=== PATIENT | female | born 1990 | race Caucasian/White ===

== ENCOUNTER 2016-10-16 17:42 | Emergency (ER) | payer OTHER ==
[~2016-10-16] VITALS: Ht 167.6 cm; Wt 79.8 kg
[2016-10-16 17:46] VITALS: BP 132/66
--- NOTE | 2016-10-16 17:56 | ED GENERAL ADULT ---
History of Present Illness General Chief Complaint: Lower Extremity Problems Stated Complaint: FALL, BILATERAL KNEE PAIN Source: patient Exam Limitations: no limitations Vital Signs & Intake/Output Vital Signs & Intake/Output Vital Signs Date Time Temp Pulse Resp B/P B/P Pulse O2 O2 Flow FiO2 Mean Ox Delivery Rate 10/16 1746 98.6 86 18 132/66 98 Room Air Allergies Uncoded Allergies: SEAFOOD (Severe, ANAPHYLAXIS 10/16/16) Triage Note: 26 YO FEMALE TO ER C/O PAIN TO BILATERALL KNEES AND DOWN ENTIRE SPINE. PT STATES SHE FALL LAST WEEK AND AGAIN MONDAY. STATES SHE WASNT WEARING NON-SLIP SHOES AND THATS WHY SHE KEEPS FALLING. [facility] T[facility] Nurses Notes Reviewed? yes : No Patient currently breastfeeds: No HPI: 26-year-old female with a history of opiate abuse (on methadone) presenting with bilateral knee pain and low back pain status post mechanical falls. Reports first mechanical fall was 10 days ago when she slipped on water, landed on tile floor with bilateral knees. Reports second mechanical fall was 4 days ago when she tripped over a pain that was on the floor in the kitchen, fell backwards onto tile floor landing on her buttocks. Denies head injuries or loss of consciousness with either episode. Been using Tylenol and ibuprofen with minimal improvement. Denies numbness or paresthesias. (ANNA MARQUEZ,RAJ) Reconcile Medications Lidocaine (Lidoderm) 5 % ADH..PATCH 1 PAT TOP DAILY PRN knee or back pain may wear up to 12 hours Naproxen (Naprosyn) 500 MG TABLET 1 TAB PO BID PRN knee or back pain (RADHA ZHAO,GAIL Sanders) Past History Travel History Traveled to [place] past 21 day No Medical History Any Pertinent Medical History? 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 No (RAJ CASTILLO PA-C) Review of Systems Review of Systems Constitutional: Reports: no symptoms. Respiratory: Reports: no symptoms. Cardiovascular: Reports: no symptoms. GI: Reports: no symptoms. Musculoskeletal: Reports: back pain, joint pain (knees). Skin: Reports: no symptoms. Neurological/Psychological: Reports: no symptoms. (ANNA MARQUEZ,RAJ) Physical Exam Physical Exam General Appearance: well developed/nourished, no apparent distress, alert, awake , comfortable Head: atraumatic Respiratory: normal breath sounds, lungs clear Cardiovascular: regular rate/rhythm, normal peripheral pulses Back: normal inspection, normal range of motion, no vertebral tenderness, on exam of the back there are no abrasions, ecchymosis, or other signs of physical trauma. There is no midline spinal or paraspinal tenderness to palpation. Unrestricted spinal range of motion. Negative straight leg raise. Able to ambulate unassisted with a steady gait. Extremities: normal inspection, normal range of motion, on exam of bilateral knees there are no abrasions, ecchymosis, or other signs of physical trauma. There is no tenderness to palpation. unrestricted range of motion with both flexion and extension. Normal sensation. Motor strength 5 out of 5. Distal pulses palpable. Neurologic/Psych: awake, alert, oriented x 3, normal mood/affect Skin: intact, normal color, warm/dry Core Measures ACS in differential dx? No CVA/TIA Diagnosis: No Severe Sepsis Present: No Septic Shock Present: No (RAJ CASTILLO PA-C) Progress Differential Diagnoses I considered the following diagnoses in my evaluation of the patient: [Knee contusion versus fracture versus ligament sprain versus dislocation. Low back contusion versus vertebral fracture versus sacral fracture.] Plan of Care: Current Medications Sig/Milagros Start time Last Medication Dose Stop Time Status Admin Ketorolac 60 MG ONCE ONE 10/16 1829 AC Tromethamine 10/16 1830 (Toradol) Lidocaine 1 PAT ONCE ONE 10/16 1829 AC (Lidoderm) 10/16 1830 No indication for imaging at this time as patient has an unremarkable physical exam that is not concerning for any fractures. Given Rx for Lidoderm patches and naproxen. Will follow-up with her primary care provider. (RAJ CASTILLO PA-C) Initial ED EKG: none (RAJ CASTILLO PA-C) Departure Departure Disposition: HOME OR SELF CARE Condition: Stable Clinical Impression Primary Impression: Contusion of lower back Secondary Impressions: Contusion of knee, left, Contusion of right knee Additional Instructions: Use 500 mg of naproxen twice daily as needed for pain. Take this medication with a meal. Apply 1 Lidoderm patch to most painful area once daily. Follow up with her primary care provider for reevaluation. Return to the ED for any new or worsening symptoms. Departure Forms: Customer Survey General Discharge Information (ANNA MARQUEZ,RAJ) Departure Prescriptions: Current Visit Scripts Naproxen (Naprosyn) 1 TAB PO BID PRN knee or back pain #60 TAB Lidocaine (Lidoderm) 1 PAT TOP DAILY PRN knee or back pain #30 PAT may wear up to 12 hours PA/TOMATO PASTE MAKER Co-Sign Statement Statement: ED Attending supervision documentation- [] I saw and evaluated the patient. I have also reviewed all the pertinent lab results and diagnostic results. I agree with the findings and the plan of care as documented in the PA's/TOMATO PASTE MAKER's documentation. [X] I have reviewed the ED Record and agree with the PA's/TOMATO PASTE MAKER's documentation. [] Additions or exceptions (if any) to the PAs/TOMATO PASTE MAKER's note and plan are summarized below: [] (RADHA ZHAO,GAIL Sanders) Critical Care Note Critical Care Note Critical Care Time: non-applicable (ANNA MARQUEZ,RAJ)
[2016-10-16] MEDS ORDERED: LIDODERM1 EACH TOP (18:27)
[2016-10-16] MEDS ORDERED: NAPROSYN500 M1 PO (18:27)
== END 2016-10-16 18:36 ==
LOC: ERH 17:42
DX: S30.0XXA Contusion of lower back and pelvis, initial encounter (principal); S80.01XA Contusion of right knee, initial encounter; S80.02XA Contusion of left knee, initial encounter; W19.XXXA Unspecified fall, initial encounter; Y92.000 Kitchen of unspecified non-institutional (private) residence as the place of occurrence of the external cause; Y93.9 Activity, unspecified
CPT/HCPCS: 96372; J1885

== ENCOUNTER 2016-11-08 17:41 | Emergency (ER) | payer OTHER ==
[~2016-11-08] VITALS: Ht 167.6 cm; Wt 81.6 kg
[~2016-11-08 17:41] MED LIST: LIDODERM1 EACH TOP; NAPROSYN500 M1 PO
[2016-11-08 17:44] VITALS: BP 120/68
--- NOTE | 2016-11-08 17:57 | ED UPPER/LOWER EXTREMITY COMPL ---
History of Present Illness General Chief Complaint: Lower Extremity Injury Stated Complaint: LT KNEE PAIN Source: patient, old records Exam Limitations: no limitations Vital Signs & Intake/Output Vital Signs & Intake/Output Vital Signs Date Time Temp Pulse Resp B/P B/P Pulse O2 O2 Flow FiO2 Mean Ox Delivery Rate 11/08 1744 96.8 78 15 120/68 98 Room Air Room Air Allergies Uncoded Allergies: SEAFOOD (Severe, ANAPHYLAXIS 10/16/16) Reconcile Medications Lidocaine (Lidoderm) 5 % ADH..PATCH 1 PAT TOP DAILY PRN knee or back pain may wear up to 12 hours Naproxen (Naprosyn) 500 MG TABLET 1 TAB PO BID PRN knee or back pain Triage Note: PT TO ED FOR C/C OF L KNEE PAIN AND SWELLING S/P FALL TWO WEEKS AGO. SEEN HERE RECENTLY FOR SAME. Triage Nurses Notes Reviewed? yes : No Patient currently breastfeeds: No HPI: Patient fell at work for 3 weeks ago and injured her left knee. Since then her left knee has been having increasing pain. Positive swelling. The pain increases when she ambulates or squats. There is no radiation of the pain. The pain is throbbing in nature. She rates the pain is 8 out of 10. Patient denies any weakness or numbness. Past History Travel History Traveled to [place] past 21 day No Medical History Any Pertinent Medical History? 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 No Review of Systems Review of Systems Constitutional: Reports: no symptoms. Respiratory: Reports: no symptoms. Cardiovascular: Reports: no symptoms. Gastrointestinal/Abdominal: Reports: no symptoms. Musculoskeletal: Reports: see HPI, joint pain, joint swelling. Neurological/Psychological: Reports: no symptoms. Immunological: Reports: no symptoms. Physical Exam Physical Exam General Appearance: well developed/nourished, alert, awake, mild distress Head: atraumatic Eyes: Bilateral: PERRL, EOMI. Neck: normal inspection, supple Cardiovascular/Respiratory: normal breath sounds, normal peripheral pulses, regular rate/rhythm, no respiratory distress Leg Left: normal range of motion, normal inspection Leg Right: normal range of motion, normal inspection Hip Left: normal range of motion, normal inspection Hip Right: normal range of motion, normal inspection Knee Left: swelling, tenderness, pain, soft tissue tenderness Knee Ligaments Left: STABLE Knee Right: normal range of motion, normal inspection Foot Left: normal inspection, normal range of motion Foot Right: normal inspection, normal range of motion Neurologic/Tendon: normal sensation, normal motor functions, normal tendon functions Skin: intact, normal color Lymphatic: no anterior cervical judd Progress Differential Diagnosis: contusion, dislocation, fracture, sprain Plan of Care: Orders Procedure Date/time Status Durable Medical Equipment 11/08 1752 Active Diagnostic Imaging: Viewed by Me: Radiology Read. Discussed w/RAD: Radiology Read. Radiology Impression: PATIENT: ANGELI BALL PRESENT AGE: 26 PATIENT ACCOUNT NO: [id number] : 92 LOCATION: [facility] ORDERING PHYSICIAN: GAIL GARCIA MD SERVICE DATE: 11/08/16 EXAM TYPE: RAD - XRY-KNEE COMPLETE LEFT EXAMINATION: XR KNEE, LEFT CLINICAL INFORMATION: Pain, fall COMPARISON: None TECHNIQUE: Four views of the left knee. FINDINGS: Positive effusion. No acute fracture or dislocation. No bony erosion. IMPRESSION: Positive effusion. No fracture or dislocation is seen. DICTATED BY: JORDAN FISHER MD DATE/TIME DICTATED:11/08/161821 HAND TUFTER:FRITZ DATE/TIME TRANSCRIBED:11/08/161821 CONFIDENTIAL, DO NOT COPY WITHOUT APPROPRIATE AUTHORIZATION. <Electronically signed in Other Vendor System> SIGNED BY: JORDAN FISHER MD 11/08/161826 Departure Departure Disposition: HOME OR SELF CARE Condition: Stable Clinical Impression Primary Impression: Left knee sprain Referrals: UNKNOWN (PCP/Family) YANNICK ALFREDO MD Additional Instructions: WEAR IMMOBILIZER FOLLOW UP ORTHOPEDICS RETURN NEEDED Departure Forms: Customer Survey General Discharge Information Procedures Splinting Location: LEFT KNEE Manual Alignment Performed: No Pre-Made Type: knee imobilizer Splint: KNEE Splint Applied By: splint applied by other Pre-Proc Neuro Vasc Exam: normal Post-Proc Neuro Vasc Exam: normal
--- NOTE | 2016-11-08 18:27 | RADIOLOGY REPORT ---
EXAMINATION: XR KNEE, LEFT CLINICAL INFORMATION: Pain, fall COMPARISON: None TECHNIQUE: Four views of the left knee. FINDINGS: Positive effusion. No acute fracture or dislocation. No bony erosion. IMPRESSION: Positive effusion. No fracture or dislocation is seen.
== END 2016-11-08 18:44 ==
LOC: ERH 17:41
DX: S83.92XA Sprain of unspecified site of left knee, initial encounter (principal); W19.XXXA Unspecified fall, initial encounter; Y92.9 Unspecified place or not applicable; Y93.9 Activity, unspecified
CPT/HCPCS: 73562-LT